=== PATIENT | male | born 1995 | race African-American/Black ===

== ENCOUNTER 2017-11-28 13:13 | Emergency (ER) | payer OTHER ==
[2017-11-28] MEDS ORDERED: Ketorolac Tromethamine 30 MG/ML VIAL ONE (14:30)
--- NOTE | 2017-11-28 15:03 | RAD ---
1 VIEW CHEST: Date: 11/28/17 HISTORY: Pain. Injury. COMPARISON: None. FINDINGS: Normal cardiac silhouette. Pulmonary vessels and hilum are normal. No consolidation or mass. No pneum othorax or osseous abnormalities. IMPRESSION: No acute cardiopulmonary process. POS: PPP
== END 2017-11-28 14:53 | disposition home or self-care (01) ==
LOC: ERS 13:13
DX: S20.219A Contusion of unspecified front wall of thorax, initial encounter (principal); S00.83XA Contusion of other part of head, initial encounter; W22.8XXA Striking against or struck by other objects, initial encounter
CPT/HCPCS: 71045; 96372; J1885